=== PATIENT | female | born 2000 ===

== ENCOUNTER 2024-04-24 10:21 | Outpatient (REF) | payer MEDICAID, SELFPAY ==
[2024-04-24 11:12] LABS: MANUAL DIFF FLAG NO
[2024-04-24 11:13] LABS: Basophils Absolute Auto 0.1 X10*3/uL (0.0-0.2); Basophils Percent Auto 0.6 % (0-2); Eosinophils Absolute Auto 0.3 X10*3/uL (0.0-0.4); Eosinophils Percent Auto 2.8 % (0-4); Hematocrit 41.4 % (37.0-47.0); Hemoglobin 13.5 g/dl (12.0-16.0); Imm Gran Abs Auto 0.02 X10*3/uL (0.00-0.03); Imm Gran Pct Auto 0.2 % (0.0-0.4); Lymphocytes Absolute Auto 2.6 X10*3/uL (1.2-4.9); Lymphocytes Percent Auto 27.5 % (20-40); Mean Corpuscular HGB Conc 32.6 g/dl (31.0-35.0); Mean Corpuscular Hemoglobin 26.5 pg (27.0-33.0); Mean Corpuscular Volume 81.3 fL (80.0-98.0); Mean Platelet Volume 10.3 fL (9.4-12.3); Monocytes Absolute Auto 0.6 X10*3/uL (0.1-1.2); Monocytes Percent Auto 6.5 % (2-11); Neutrophils Percent Auto 62.4 % (45-73); Platelet Count 337 X10*3/uL (160-400); Red Blood Count 5.09 X10*6/uL (4.20-5.50); Red Cell Distribution Width 13.1 % (11.0-16.0); White Blood Count 9.6 X10*3/uL (4.8-10.8)
[2024-04-24 11:31] LABS: Anion Gap 11 (12-20); Aspartate Amino Transferase 26 U/L (5-31); Bilirubin Direct 0.2 mg/dL (0.0-0.5); Bilirubin Total 0.4 mg/dL (0.0-1.0); Blood Urea Nitrogen 12 mg/dL (9-16); Carbon Dioxide 22 mmol/L (22-29); Chloride 108 mmol/L (96-108); Cholesterol 144 mg/dL (<200); Estimated Glomerular Filt Rate > 60; Glucose Random 93 mg/dL (60-115); HDL Cholesterol 42 mg/dL (>40); LDL Cholesterol Calculated 92 mg/dL (<100); Potassium 3.9 mmol/L (3.3-5.1); Sodium 137 mmol/L (135-145); Total Protein 7.8 g/dL (6.5-8.0); Triglycerides 51 mg/dL (<150)
[2024-04-24 11:44] LABS: Syphilis Screen Nonreactive (Nonreactive)
[2024-04-24 12:14] LABS: Alanine Aminotransferase 21 U/L (0-31); Alkaline Phosphatase 104 U/L (39-117)
[2024-04-24 12:59] LABS: HBS Num1 > 1000.00 mIU/mL (0-7.99); HBc Num1 0.11 S/CO (0.00-0.79); HBsAGNum1 0.52 S/CO (0.00-0.99); HIV AB/AG Nonreactive (Nonreactive); HIV Num 1 0.08 S/CO (0.00-0.99); Hepatitis A Antibody IgM 0.33 Index (0-0.79); Hepatitis B Core Antibody Nonreactive (Nonreactive); Hepatitis B Surface Antigen Negative (Negative); ~HepC Num1 0.85 S/CO (0.00-0.79); ~Hepatitis A Antibody IgM Nonreactive (Nonreactive); ~Hepatitis B Surface Antibody REACTIVE (Nonreactive)
[2024-04-24 18:06] LABS: CT PCR NOT DETECTED (Not Detect.); NG PCR NOT DETECTED (Not Detect.)
[2024-04-25 09:02] LABS: ~HepC Num3 0.87; ~Hepatitis C Antibody GRAYZONE (Nonreactive)
[2024-04-27 19:08] LABS: Varicella IgG Antibody <1.00 S/CO
[2024-04-27 23:43] LABS: Rubella IgG Antibody 3.78 Index
[2024-04-29 20:17] LABS: HCV Log PCR <1.18 NOT DETECTED Log IU/mL (NOT DETECTED); HepC Viral Load <15 NOT DETECTED IU/mL (NOT DETECTED)
== END 2024-04-24 10:22 | disposition home or self-care (01) ==
LOC: HO.HHCL 10:21
PROVIDERS: Visit Provider Family Medicine
DX: N91.2 Amenorrhea, unspecified (principal); Z11.59 Encounter for screening for other viral diseases; Z11.3 Encounter for screening for infections with a predominantly sexual mode of transmission; Z78.9 Other specified health status
CPT/HCPCS: 36415; 80048; 80061; 80076; 85025; 86704; 86706; 86709; 86735; 86762; 86765; 86780; 86787; 86803; 87340; 87389; 87491; 87522; 87591